=== PATIENT | male | born 1965 | race Caucasian/White ===

== ENCOUNTER → 2016-07-05 | Outpatient (CLI) | payer OTHER ==
[~2016-07-05] MED LIST: OXYC-106 PO
--- NOTE | 2016-07-05 16:31 | DIAGNOSTIC IMAGING REPORT ---
CHEST 2 VIEWS ROUTINE CLINICAL HISTORY: PNEUMONIA, UNSPECIFIED ORGANISM COMPARISON STUDY: 08/05/2014 FINDINGS: There is severe underlying emphysema. There is elevation of the left hemidiaphragmatic contour. There are left lingular and lower lobe airspace opacities, consistent with a pneumonia. Subpulmonic left pleural effusion fluid cannot be excluded. The heart is normal in size. There is no failure. There is fluid present within a right apical cavity best visualized on the lateral view.[ IMPRESSION: 1. Severe emphysema 2. Small air-fluid level within a right apical cavity 3. Elevation of the left hemidiaphragmatic contour 4. Left lingular and left lower lobe airspace opacities consistent with a pneumonia 5. Subpulmonic left pleural fluid cannot be excluded. CT scanning might be considered in follow-up for further evaluation. Electronically signed by: Ray Pittman M.D. 07/05/2016 4:29 PM Dictated Date/Time: 07/05/2016 4:26 PM
[2016-07-05 17:19] LABS: ALT/SGPT 15 U/L (12-78); BLOOD UREA NITROGEN 11 mg/dl (7-18); BUN/CREATININE RATIO 17.3 (10-20); CARBON DIOXIDE 28 mmol/L (21-32); CHLORIDE 96 mmol/L (98-107); CREATININE 0.64 mg/dl (0.60-1.40); GLUCOSE 120 mg/dl (70-99); POTASSIUM 3.8 mmol/L (3.5-5.1); SODIUM 134 mmol/L (136-145)
[2016-07-05 17:22] LABS: ALB/GLOB RATIO 0.4 (0.9-2); ALKALINE PHOSPHATASE 92 U/L (45-117); AST/SGOT 12 U/L (15-37)
[2016-07-05 17:30] LABS: CALCIUM 8.7 mg/dl (8.5-10.1)
== END | disposition home or self-care (01) ==
LOC: C.RAD 15:35
PROVIDERS: ATTEND Family Medicine
DX: D64.9 Anemia, unspecified (principal); J18.9 Pneumonia, unspecified organism; J43.9 Emphysema, unspecified

== ENCOUNTER → 2016-07-09 | Outpatient (CLI) | payer OTHER ==
[2016-07-18 16:20] LABS: QUANTIF TB AG-NIL <0.00 IU/ML; QUANTIFERON NIL 0.02 IU/ML
== END | disposition home or self-care (01) ==
LOC: C.LABSPEC 16:40
PROVIDERS: ATTEND Family Medicine
DX: J18.9 Pneumonia, unspecified organism (principal)

== ENCOUNTER → 2016-07-10 | Outpatient (CLI) | payer OTHER ==
[~2016-07-10] MED LIST changes: +OPTIRAY 320 IV PRN
--- NOTE | 2016-07-10 10:38 | DIAGNOSTIC IMAGING REPORT ---
CHEST CT WITH CONTRAST CT DOSE: 218.30 mGycm HISTORY: Abnormal chest x-ray. POSSIBLE LEFT PLEURAL FLUID TECHNIQUE: Multiaxial CT images of the chest were performed following the intravenous administration of contrast. COMPARISON: Chest 07/05/2016. FINDINGS: There is a large loculated left basilar pleural effusion. This demonstrates a thickened and irregular enhancing wall. Small amount additional left anterior pleural fluid/enhancement. A 5 mm hypodense lesion within the right hepatic lobe is too small to characterize. Small fluid surrounding the spleen. This is only partially visualized. Subcentimeter mediastinal lymph nodes do not meet CT criteria for pathologic involvement at this time. No significant hilar lymphadenopathy. The main pulmonary arteries are patent. Normal caliber thoracic aorta. Old, healed right lower posterior rib fractures. No acute fractures. Old left clavicle fracture. No pneumothorax. The central airways are patent. Severe apical predominant bullous emphysema. Small fluid levels located within pre-existing right upper lobe bullae. Focal patchy areas of consolidation seen within the right lung apex and left upper lobe anteriorly. Groundglass densities at the base of the left lower lobe this may be due to atelectasis from the large loculated pleural effusion. IMPRESSION: 1. There is a large loculated left basilar pleural effusion. This demonstrates a thickened and irregular enhancing wall. This favors an empyema. However, a malignant pleural effusion could also have a similar appearance. 2. Patchy areas of consolidation seen within the right upper lobe and left upper lobe. The right upper lobe consolidation demonstrates small fluid levels within pre-existing bulla. These are highly suspicious for a pneumonia. In addition, these findings could represent an atypical pneumonia such as tuberculosis in the appropriate clinical setting. 3. Follow-up chest CT is recommended to ensure resolution of these findings. 4. Severe bullous emphysema. Electronically signed by: Mukul Sanchez M.D. 07/10/2016 10:36 AM Dictated Date/Time: 07/10/2016 10:24 AM
== END | disposition home or self-care (01) ==
LOC: C.CTS 09:52
PROVIDERS: ATTEND Family Medicine
DX: Z09 Encounter for follow-up examination after completed treatment for conditions other than malignant neoplasm (principal); R91.8 Other nonspecific abnormal finding of lung field; J90 Pleural effusion, not elsewhere classified; J43.9 Emphysema, unspecified

== ENCOUNTER 2016-07-11 16:14 | Emergency (ER) | payer OTHER ==
[~2016-07-11] VITALS: Ht 182.9 cm; Wt 62.4 kg
[~2016-07-11 16:14] MED LIST changes: -OPTIRAY 320 IV PRN
[2016-07-11 16:20] VITALS: TEMP 37.5; Ht 182.9 cm; Wt 62.4 kg
[2016-07-11] MEDS ORDERED: SODIUM CHLORIDE 0.9% 1000ML 1,000 ML IV ONE (16:37)
[2016-07-11] MEDS ORDERED: PIPERACILLIN/TAZOBACTAM 4.5 GM/100ML D5W IV STA (16:37)
[2016-07-11] MEDS ORDERED: ALBUT/IPRATROP 3MG/0.5MG NEB 3 ML VIAL INH STA (16:37)
--- NOTE | 2016-07-11 16:43 | EMERGENCY ROOM VISIT NOTE ---
History Report prepared by Joseph: Tony Potter Under the Supervision of: Dr. Stevie Cody D.O. First contact with patient: 16:17 Chief Complaint: RESPIRATORY PROBLEMS Stated Complaint: FLUID IN LUNGS- PHYSICIAN REFERRED History of Present Illness The patient is a 51 year old male who presents to the Emergency Room with complaints of cough and difficulty breathing. The patient has had weight loss difficulty breathing and cough which is been ongoing for quite some time. The patient is lost 25 pounds recently without trying to lose weight. The patient had an abnormal chest x-ray which led to a pulmonary consultation. The patient was started on doxycycline initially and is currently taking Augmentin. He is on day 5 Augmentin. He still has significant shortness of breath and exertional dyspnea. He had a chest CT yesterday and had a follow-up appointment with pulmonology today. Results of the chest CT or worrisome for a pulmonary abscess. The patient doesn't a history of being incarcerated in the past. He has no history of tuberculosis. The patient was sent to the emergency department for transfer to a tertiary center for cardiothoracic surgery evaluation. The short piece handler presented to the emergency department with the patient to give me some of the history and to recommend transfer for CT surgery evaluation. The patient denies any recent fevers. He denies having any hemoptysis. He does complain of night sweats however. Source of History: patient Onset: For quite some time Position: other (global - cough/shortness of breath) Symptom Intensity: significant Associated Symptoms: No fevers Note: Associated symptoms: Denies any hemoptysis. Does complain of night sweats. Lost 25 pounds recently. Review of Systems See HPI for pertinent positives & negatives. A total of 10 systems reviewed and were otherwise negative. Past Medical & Surgical Medical Problems: (1) Cough (2) SOB (shortness of breath) Family History No pertinent family history Social History Marital Status: Housing Status: lives alone Occupation Status: unemployed Current/Historical Medications Unable to Obtain Active Prescriptions or Reported Meds Allergies Coded Allergies: No Known Allergies (Verified Allergy, Unknown, 11/09/04) Physical Exam Vital Signs Date Time Temp Pulse Resp B/P Pulse Ox O2 Delivery O2 Flow Rate FiO2 07/11/16 18:04 Nasal Cannula 2.0 07/11/16 17:42 99 19 110/67 97 Nasal Cannula 2.0 07/11/16 16:29 111 07/11/16 16:20 37.5 118 25 121/76 90 Room Air Physical Exam GENERAL: Patient is awake and alert. He is nonanxious appearing. He is somewhat frail and cachectic. EYES: The conjunctivae are clear. The pupils are round and reactive. EARS, NOSE, MOUTH AND THROAT: The nose is without any evidence of any deformity. Mucous membranes are moist tongue is midline NECK: The neck is nontender and supple. RESPIRATORY: Mild tachypnea was noted with mild conversational dyspnea. Dementia breath sounds are noted throughout. CARDIOVASCULAR: Tachycardic rate with regular rhythm was noted. No definite murmur was noted auscultation. GASTROINTESTINAL: The abdomen is soft. Bowel sounds are present in all quadrants. Abdomen is nontender MUSCULOSKELETAL/EXTREMITIES: There is no evidence of gross deformity full range of motion is noted in the hips and shoulders SKIN: There is no obvious evidence of any rash. There are no petechiae, pallor or cyanosis noted. NEUROLOGIC: Patient is awake alert and oriented x3. Medical Decision & Procedures Laboratory Results 07/11/16 17:25 Red Blood Count 3.43, Mean Corpuscular Volume 72.3, Mean Corpuscular Hemoglobin 21.3, Mean Corpuscular Hemoglobin Concent 29.4, Mean Platelet Volume 7.6, Neutrophils (%) (Auto) 88.5, Lymphocytes (%) (Auto) 5.3, Monocytes (%) (Auto) 5.6, Eosinophils (%) (Auto) 0.1, Basophils (%) (Auto) 0.1, Neutrophils # (Auto) 14.50, Lymphocytes # (Auto) 0.87, Monocytes # (Auto) 0.91, Eosinophils # (Auto) 0.02, Basophils # (Auto) 0.01 07/11/16 17:25 Test 07/11/16 17:25 07/11/16 17:29 07/11/16 18:00 White Blood Count 16.37 K/uL (4.8-10.8) Red Blood Count 3.43 M/uL (4.7-6.1) Hemoglobin 7.3 g/dL (14.0-18.0) Hematocrit 24.8 % (42-52) Mean Corpuscular Volume 72.3 fL (80-100) Mean Corpuscular Hemoglobin 21.3 pg (25-34) Mean Corpuscular Hemoglobin Concent 29.4 g/dl (32-36) Platelet Count 710 K/uL (130-400) Mean Platelet Volume 7.6 fL (7.4-10.4) Neutrophils (%) (Auto) 88.5 % Lymphocytes (%) (Auto) 5.3 % Monocytes (%) (Auto) 5.6 % Eosinophils (%) (Auto) 0.1 % Basophils (%) (Auto) 0.1 % Neutrophils # (Auto) 14.50 K/uL (1.4-6.5) Lymphocytes # (Auto) 0.87 K/uL (1.2-3.4) Monocytes # (Auto) 0.91 K/uL (0.11-0.59) Eosinophils # (Auto) 0.02 K/uL (0-0.5) Basophils # (Auto) 0.01 K/uL (0-0.2) RDW Standard Deviation 50.3 fL (36.4-46.3) RDW Coefficient of Variation 18.9 % (11.5-14.5) Immature Granulocyte % (Auto) 0.4 % Immature Granulocyte # (Auto) 0.06 K/uL (0.00-0.02) Polychromasia 1+ Rouleau 1+ Erythrocyte Sedimentation Rate > 90 mm/hr (0-14) Prothrombin Time 11.8 SECONDS (9.0-12.0) Prothromb Time International Ratio 1.1 (0.9-1.1) Activated Partial Thromboplast Time 40.6 SECONDS (21.0-31.0) Partial Thromboplastin Ratio 1.6 Anion Gap 8.0 mmol/L (3-11) Est Creatinine Clear Calc Drug Dose 129.3 ml/min Estimated GFR () 134.9 Estimated GFR (Non- 116.4 BUN/Creatinine Ratio 13.6 (10-20) Calcium Level 8.7 mg/dl (8.5-10.1) Phosphorus Level 3.3 mg/dl (2.5-4.9) Magnesium Level 1.8 mg/dl (1.8-2.4) Total Bilirubin 0.3 mg/dl (0.2-1) Aspartate Amino Transf (AST/SGOT) 12 U/L (15-37) Alanine Aminotransferase (ALT/SGPT) 17 U/L (12-78) Alkaline Phosphatase 71 U/L (45-117) Total Creatine Kinase 19 U/L (39-308) Creatine Kinase MB < 0.5 ng/ml (0.5-3.6) Creatine Kinase MB Ratio (0-3.0) Troponin I < 0.015 ng/ml (0-0.045) C-Reactive Protein 13.90 mg/dl (0-0.29) Total Protein 6.8 gm/dl (6.4-8.2) Albumin 2.1 gm/dl (3.4-5.0) Globulin 4.7 gm/dl (2.5-4.0) Albumin/Globulin Ratio 0.4 (0.9-2) Lipase 58 U/L (73-393) Bedside Lactic Acid Venous 0.77 mmol/L (0.90-1.70) Urine Color YELLOW Urine Appearance CLEAR (CLEAR) Urine pH 7.0 (4.5-7.5) Urine Specific [place] 1.016 (1.000-1.030) Urine Protein NEG (NEG) Urine Glucose (UA) NEG (NEG) Urine Ketones NEG (NEG) Urine Occult Blood NEG (NEG) Urine Nitrite NEG (NEG) Urine Bilirubin NEG (NEG) Urine Urobilinogen NEG (NEG) Urine Leukocyte Esterase NEG (NEG) Urine WBC (Auto) 1-5 /hpf (0-5) Urine RBC (Auto) 0-4 /hpf (0-4) Urine Hyaline Casts (Auto) 1-5 /lpf (0-5) Urine Epithelial Cells (Auto) 5-10 /lpf (0-5) Urine Bacteria (Auto) NEG (NEG) Laboratory results per my review. Medications Administered Medications (Trade) Dose Ordered Sig/Nikkie Route Start Time Stop Time Status Last Admin Dose Admin Sodium Chloride (Nss 1000ml) 1,000 ml @ 999 mls/hr Q1H1M ONCE IV 07/11/16 16:37 07/11/16 17:37 DC 07/11/16 17:39 999 MLS/HR Piperacillin Sod/ Tazobactam Sod (Zosyn Iv) 4.5 gm NOW STAT IV 07/11/16 16:37 07/11/16 16:40 DC 07/11/16 17:39 4.5 GM Albuterol/ Ipratropium (Duoneb) 3 ml NOW STAT INH 07/11/16 16:37 07/11/16 16:40 DC 07/11/16 17:39 3 ML ECG Indication: SOB/dyspnea Rate (beats per minute): 93 Rhythm: normal sinus Findings: no ectopy, other (no acute ST segment abnormalities) Change: no significant change (compared to october of 2004) ED Course 1633: The patient was evaluated in room A4B. A complete history and physical examination were performed. 163: Ordered Duoneb 3 ml INH, Zosyn IV 4.5 gm IV, NSS 1000 ml @ 999 mls/hr IV. 165: I discussed the patient with Dr. Phipps - hospitalist at [facility] - he wants me to talk to cardiothoracic surgery. 1740: I discussed the patient with Dr. Rdz - Cardiology - [facility] in [place] - he says that they would not be able to offer procedure there. 181: I discussed the patient with Dr. Kamaljit Naranjo cardiac surgery. 181: I discussed the patient with Dr. Jorge Naranjo chemical processing laborer. She will accept the patient in transfer and evaluate the patient for further treatment. 1820: I reevaluated the patient and he is resting comfortably. He verbally expressed understanding and agreement of the treatment plan. The patient will be transferred to [facility] for further treatment. Medical Decision Prior records/ancillary studies reviewed. Triage Nursing notes reviewed. The patient's history was concerning for respiratory difficulties. Differential diagnosis: Etiologies such as infections, reactive airway disease, pneumonia, pneumothorax , COPD, CHF, cardiac ischemia, pulmonary embolism, musculoskeletal, gastrointestinal, as well as others were entertained. The patient is a 51-year-old male who presented to the emergency department for an evaluation of abnormal CT the chest. The patient's been having trouble recently with weight loss and cough. He had an abnormal chest x-ray and was started on doxycycline followed by Augmentin. His symptoms have not improved. He was scheduled to see a short piece handler and had a CT the chest yesterday. The CT the chest was very concerning for pulmonary abscess and the possibility of tuberculosis was raised. We were trying to schedule the patient an evaluation by cardiothoracic surgery for possible identification of the abnormality noted on CAT scan but at this time we are unable to have CT surgery see the patient at our facility. The patient was brought to the emergency department with the short piece handler recommends transfer at this time to a tertiary center. Initially I discussed his case with [facility]. They were unable to accept the patient because the CT surgeon was unable to consult on this patient. I then discussed his case with [facility]. I discussed the case with the on-call cardiothoracic surgeon as well as the hospitalist group. They were able to accept the patient transfer. He was treated with DuoNeb therapy as well as IV fluids. He was also treated with Zosyn after I discussed his case with the short piece handler at our facility. The patient was reevaluated multiple times. I discussed the patient's laboratory radiographic studies with him. He is where the severity diagnosis at this time. Consults Time Called: 1640 Consulting Physician: Dr. Moise duval at [facility] Returned Call: 1652 I discussed the patient with Dr. Moise duval at [facility] - he wants me to talk to cardiothoracic surgery. Additional Consults: Time Called: 1730 Consulted Physician: Dr. Kajal Catalan in [place] Returned Call: 1740 Additional Comments: I discussed the patient with Dr. Kajal Catalan in [place] - he says they would not be able to offer procedure there. Time Called: 1800 Consulted Physician: Dr. Kamaljit Naranjo cardiac surgery Returned Call: 1812 Additional Comments: I discussed the patient with Dr. Kamaljit Naranjo cardiac surgery. Impression Primary Impression: Pulmonary abscess Additional Impressions: Anemia PNA (pneumonia) COPD (chronic obstructive pulmonary disease) Scribe Attestation The scribe's documentation has been prepared under my direction and personally reviewed by me in its entirety. I confirm that the note above accurately reflects all work, treatment, procedures, and medical decision making performed by me. Departure Information Dispostion Transfer Acute Care Facility (to [facility]) Prescriptions Unable to Obtain Active Prescriptions or Reported Meds Referrals Esther Bustamante M.D. (PCP) Patient Instructions My [facility] Problem Qualifiers Primary Impression: Pulmonary abscess Pulmonary abscess pneumonia presence: with pneumonia Laterality: unspecified laterality Qualified Codes: J85.1 - Abscess of lung with pneumonia Additional Impressions: Anemia Anemia type: unspecified type Qualified Codes: D64.9 - Anemia, unspecified PNA (pneumonia) Pneumonia type: due to unspecified organism Laterality: bilateral Lung location: unspecified part of lung Qualified Codes: J18.9 - Pneumonia, unspecified organism COPD (chronic obstructive pulmonary disease) COPD type: unspecified COPD Qualified Codes: J44.9 - Chronic obstructive pulmonary disease, unspecified
[2016-07-11 17:44] LABS: HEMATOCRIT 24.8 % (42-52); MEAN CELL VOLUME 72.3 fL (80-100); MEAN CORPUSCULAR HEMOGLOBIN 21.3 pg (25-34); MEAN CORPUSCULAR HGB CONC 29.4 g/dl (32-36); MEAN PLATELET VOLUME 7.6 fL (7.4-10.4); PLATELET COUNT 710 K/uL (130-400); RED BLOOD COUNT 3.43 M/uL (4.7-6.1); WHITE BLOOD COUNT 16.37 K/uL (4.8-10.8)
[2016-07-11 17:52] LABS: INR 1.1 (0.9-1.1); PARTIAL THROMBOPLASTIN RATIO 1.6; PROTHROMBIN TIME (PATIENT) 11.8 SECONDS (9.0-12.0)
[2016-07-11 18:03] LABS: BASO % 0.1 %; BASO ABS # 0.01 K/uL (0-0.2); COMPLETE YES; EOS % 0.1 %; IG% 0.4 %; LYMPH % 5.3 %; LYMPH ABS # 0.87 K/uL (1.2-3.4); MONO % 5.6 %; NEUT % 88.5 %; POLYCHROMASIA 1+; ROULEAUX 1+
[2016-07-11 18:13] LABS: ALB/GLOB RATIO 0.4 (0.9-2); ALT/SGPT 17 U/L (12-78); AST/SGOT 12 U/L (15-37); BLOOD UREA NITROGEN 8 mg/dl (7-18); BUN/CREATININE RATIO 13.6 (10-20); CALCIUM 8.7 mg/dl (8.5-10.1); CARBON DIOXIDE 28 mmol/L (21-32); CHLORIDE 97 mmol/L (98-107); CREATININE 0.59 mg/dl (0.60-1.40); GLUCOSE 100 mg/dl (70-99); MAGNESIUM 1.8 mg/dl (1.8-2.4); PHOSPHORUS 3.3 mg/dl (2.5-4.9); POTASSIUM 3.8 mmol/L (3.5-5.1); SODIUM 133 mmol/L (136-145)
[2016-07-11 18:14] LABS: ALKALINE PHOSPHATASE 71 U/L (45-117)
[2016-07-11 18:25] LABS: URINE APPEARANCE CLEAR (CLEAR); URINE BILIRUBIN NEG (NEG); URINE COLOR YELLOW; URINE NITRITE NEG (NEG); URINE SPECIFIC GRAVITY 1.016 (1.000-1.030); UROBILINOGEN NEG (NEG); ZZUR CULT IF INDIC CLEAN CATCH NO
[2016-07-11 18:30] LABS: MANUAL MICROSCOPIC REQUIRED? NO; REVIEW REQ? NO
[2016-07-11 19:57] VITALS: BP 117/56; PULSE 91; O2SAT 97
== END 2016-07-11 19:35 | disposition short-term general hospital (02) ==
LOC: C.EDB 16:15 → C.EDA 19:35
DX: J85.1 Abscess of lung with pneumonia (principal); D64.9 Anemia, unspecified; J44.9 Chronic obstructive pulmonary disease, unspecified

== ENCOUNTER → 2016-08-09 | Outpatient (CLI) | payer OTHER ==
[2016-08-09 15:15] LABS: HEMATOCRIT 36.1 % (42-52); MEAN CORPUSCULAR HEMOGLOBIN 21.3 pg (25-34); MEAN CORPUSCULAR HGB CONC 28.8 g/dl (32-36); MEAN PLATELET VOLUME 8.3 fL (7.4-10.4); PLATELET COUNT 492 K/uL (130-400); RED BLOOD COUNT 4.88 M/uL (4.7-6.1); WHITE BLOOD COUNT 7.25 K/uL (4.8-10.8)
[2016-08-09 15:17] LABS: BASO ABS # 0.14 K/uL (0-0.2); BASOPHIL % 1.9 % (0-2); COMPLETE YES; EOSINOPHIL % 2.8 %; HYPOCHROMIA PRESENT; LYMPH ABS # 1.41 K/uL (1.2-3.4); LYMPHOCYTE % 19.4 %; POIKILOCYTOSIS PRESENT; SCHISTOCYTES OCCASIONAL
[2016-08-09 15:20] LABS: BLOOD UREA NITROGEN 11 mg/dl (7-18); BUN/CREATININE RATIO 17.3 (10-20); CALCIUM 8.9 mg/dl (8.5-10.1); CARBON DIOXIDE 29 mmol/L (21-32); CHLORIDE 105 mmol/L (98-107); CREATININE 0.66 mg/dl (0.60-1.40); GLUCOSE 100 mg/dl (70-99); POTASSIUM 4.6 mmol/L (3.5-5.1); SODIUM 139 mmol/L (136-145)
--- NOTE | 2016-08-15 13:13 | CODING QUERY NO DIAGNOSIS ---
TREATMENT RENDERED WITHOUT A DIAGNOSIS To promote full compliance with coding requirements relating to patient care, physician participation is requested in all cases of medical records coder uncertainty. Please assist us with providing a diagnosis/symptom for the test(s) below: A diagnosis/symptom was not documented on your Order. A valid diagnosis/symptom is required to bill all insurances. Please remember that we are unable to code a diagnosis of rule out, probable, possible, questionable, or suspected. Tests that require a diagnosis: DOS 08/09 * CBC, PRP DIAGNOSIS: Provider Signature: Date: Thank you Nica [facility] Information Management Once completed, please kindly fax back to [phone] For questions please call [phone]
== END ==
LOC: C.LABSPEC 13:54
PROVIDERS: ATTEND Internal Medicine Infectious Disease
DX: Z01.89 Encounter for other specified special examinations (principal)

== ENCOUNTER 2022-09-18 21:25 | Inpatient (IN) ==
[2022-09-18] MEDS ORDERED: ALBUT/IPRATROP 3MG/0.5MG NEB 3 ML VIAL INH STA (21:43)
[2022-09-18] MEDS ORDERED: methylPREDNISolone 125 MG/2 ML VIAL IV STA (21:47)
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
[2022-09-18 22:12] LABS: Base Excess VBG 4.2 mEq/L; HCO3 VBG 30 mmol/L; Oxygen Saturation VBG 88.7 %; PCO2 VBG 50 mmHg (38-50); PO2 VBG 59 mmHg; pH VBG 7.39 (7.36-7.41)
[2022-09-18 22:24] LABS: Basophils # (auto) 0.03 K/uL (0-0.2); Basophils % (auto) 0.4 %; Eosinophils # (auto) 0.76 K/uL (0-0.50); Eosinophils % (auto) 10.6 %; Hematocrit (blood only) 38.5 % (42.0-52.0); Immature Granulocytes # (auto) 0.02 K/uL (0.01-0.20); Immature Granulocytes % (auto) 0.3 %; Lymphocytes # (auto) 1.01 K/uL (1.2-3.4); Lymphocytes % (auto) 14.1 %; Mean Corpuscular Hemoglobin 29.4 pg (25.0-34.0); Mean Corpuscular Hgb Conc 33.8 g/dL (32.0-36.0); Mean Corpuscular Volume 87.1 fL (80.0-100.0); Mean Platelet Volume 9.4 fL (9.4-12.4); Monocytes # (auto) 0.59 K/uL (0.11-0.59); Monocytes % (auto) 8.2 %; Neutrophils # (auto) 4.75 K/uL (1.40-6.50); Neutrophils % (auto) 66.4 %; Platelet Count 248 K/uL (130-400); RDW Coefficient of Variation 12.9 % (11.5-14.5); RDW Standard Deviation 40.8 fL (36.4-46.3); Red Blood Count 4.42 M/uL (4.70-6.10); White Blood Count 7.16 K/ul (4.8-10.8)
[2022-09-18 22:43] LABS: Albumin Globulin Ratio 1.7 (0.9-2); Albumin Level 4.1 gm/dl (3.4-5.0); BUN Creatinine Ratio 21.2 (10-20); Bilirubin,Total 0.3 mg/dl (0.2-1.0); Creatinine Clr Calc Pharmacy 70.7 ml/min; Est GFR (African American) 96.9 ml/min; Est GFR (Non-African American) 83.6 ml/min; Globulin 2.4 gm/dl (2.5-4.0); Magnesium 1.8 mg/dl (1.7-2.4); Potassium 3.8 mmol/L (3.5-5.1); Total Protein 6.5 gm/dl (6.0-8.3)
[2022-09-18 22:49] LABS: Troponin I High Sensitivity 6.3 pg/ml (0-20)
[2022-09-18 22:53] LABS: D Dimer 200 ug/L FEU (0-500); Partial Thromboplastin Ratio 1.1; Partial Thromboplastin Time 29.9 Seconds (21.0-31.0); Prothrombin Time 10.9 Seconds (9.0-12.0)
[2022-09-18 23:08] LABS: Adenovirus PCR Not Detected (NotDetected); Bordetella parapertussis PCR Not Detected (NotDetected); Bordetella pertussis PCR Not Detected (NotDetected); Chlamydia pneumoniae PCR Not Detected (NotDetected); Coronavirus 229E PCR Not Detected (NotDetected); Coronavirus CoV-2 (COVID19)PCR Not Detected (NotDetected); Coronavirus HKU1 PCR Not Detected (NotDetected); Coronavirus NL63 PCR Not Detected (NotDetected); Coronavirus OC43PCR Not Detected (NotDetected); Human Metapneumovirus PCR Not Detected (NotDetected); Influenza A PCR Not Detected (NotDetected); Influenza B PCR Not Detected (NotDetected); Mycoplasma pneumoniae PCR Not Detected (NotDetected); Parainfluenza Virus 1 PCR Not Detected (NotDetected); Parainfluenza Virus 2 PCR Not Detected (NotDetected); Parainfluenza Virus 3 PCR Not Detected (NotDetected); Parainfluenza Virus 4 PCR Not Detected (NotDetected); Respiratory Syncytial VirusPCR Not Detected (NotDetected); Rhinovirus/Enterovirus PCR Not Detected (NotDetected)
[2022-09-18] MEDS ORDERED: OPTIRAY 320 125ml IV ONE (23:27)
--- NOTE | 2022-09-18 23:46 | CT Scan Report ---
Exam(s): CTA CHEST IV Amt: 119 ML OPTIRAY 320 EXAM: CT Angiography Chest With Intravenous Contrast CLINICAL HISTORY: Reason for exam: sob, tachycardia, hypoxia. TECHNIQUE: Axial computed tomographic angiography images of the chest with intravenous contrast. CTDI is 12.91 mGy and DLP is 484.81 mGy-cm. Automated exposure control was utilized for the study. A dose lowering technique was utilized adhering to the principles of ALARA. MIP reconstructed images were created and reviewed. COMPARISON: No relevant prior studies available. FINDINGS: Pulmonary arteries: Adequate pulmonary artery opacification. Normal caliber main pulmonary artery. No pulmonary embolism. Aorta: No acute findings. No thoracic aortic aneurysm or dissection. Lungs: Severe paraseptal and centrilobular emphysema with bullous changes. Right apical bulla measures up to 9.6 cm. Biapical pleural- parenchymal scarring. No consolidation or mass. Pleural space: Unremarkable. No pleural effusion or pneumothorax. Heart: Unremarkable. Normal heart size. No pericardial effusion. No RV strain. No significant coronary artery atherosclerosis. Bones/joints: No acute fracture or dislocation. Soft tissues: Unremarkable. Lymph nodes: Unremarkable. No adenopathy. IMPRESSION: 1. No evidence of acute pulmonary embolism. 2. Severe emphysema with bullous changes. Electronically signed by: Tata Amaya M.D. 09/18/22 23:45 PM
[2022-09-19] MEDS ORDERED: MAGNESIUM SULFATE / D5W 1 GM/100 ML BAG IV ONE (01:35)
[2022-09-19] MEDS ORDERED: ONDANSETRON INJ 2 MG/ML 2 ML VIAL IV PRN (02:24)
[2022-09-19] MEDS ORDERED: GLUCOSE 10 TAB/TUBE PO PRN (02:24)
[2022-09-19] MEDS ORDERED: ACETAMINOPHEN 325 MG TAB PO PRN (02:24)
[2022-09-19] MEDS ORDERED: GLUCAGON FOR INJ 1 MG VIAL SQ PRN (02:24)
[2022-09-19] MEDS ORDERED: GLUCOSE 40% GEL 15 GM TUBE PO PRN (02:24)
[2022-09-19] MEDS ORDERED: DEXTROSE 50% 50 ML SYRINGE IV PRN (02:24)
[2022-09-19] MEDS ORDERED: CARBOHYDRATES FOR HYPOGLYCEMIA PO PRN (02:24)
[2022-09-19 03:46] LABS: Appearance Urine Clear (Clear); Bacteria Urine Automated Negative (Negative); Bilirubin Urine Negative (Negative); Blood Urine 1+ (Negative); Cast Urine Automated 0 /lpf (0-5); Color Urine Yellow; Epithelial Cell Urine Auto 0-5 /lpf (0-5); Glucose Urine UA 2+ (Negative); Ketones Urine Negative (Negative); Leukocyte Esterase Urine Negative (Negative); Nitrite Urine Negative (Negative); Protein Urine Negative (Negative); Specific Gravity Urine > 1.045 (1.000-1.030); Urobilinogen Urine Negative (Negative); WBC Urine Automated 0 /hpf (0-5)
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
[2022-09-19] MEDS: methylPREDNISolone 40 MG in SYRINGE 0 ML IV SCH ×3 (05:58→21:41)
--- NOTE | 2022-09-19 07:11 | XRay Report ---
XR chest 1V portable HISTORY: Dyspnea COMPARISON: Chest CT 07/10/2016. FINDINGS: Biapical scarlike densities and severe bullous emphysema again noted. No pneumothorax. No f ocal effusions. No new focal lung consolidations to suggest a pneumonia. No evidence for pulmonary ed kala. The heart is normal in size. Old, healed left clavicle fracture. IMPRESSION: Emphysema again noted. Otherwise, no acute process within the chest. ACT 112: Negative or not required by law. Electronically signed by: Mukul Sanchez M.D. 09/19/2022 7:09 AM
[2022-09-19] MEDS: ALBUT/IPRATROP 3MG/0.5MG NEB 3 ML VIAL NEB SCH ×4 (07:33→19:18)
[2022-09-19 08:04] LABS: Hematocrit (blood only) 37.7 % (42.0-52.0); Hemoglobin 12.4 g/dl (14.0-18.0); Mean Corpuscular Hemoglobin 28.8 pg (25.0-34.0); Mean Corpuscular Hgb Conc 32.9 g/dL (32.0-36.0); Mean Corpuscular Volume 87.7 fL (80.0-100.0); Mean Platelet Volume 9.8 fL (9.4-12.4); Platelet Count 224 K/uL (130-400); RDW Coefficient of Variation 12.8 % (11.5-14.5); RDW Standard Deviation 40.7 fL (36.4-46.3)
[2022-09-19] MEDS: INSULIN ASPART PER UNIT CHARGE SC SCH ×4 (08:11→20:08)
[2022-09-19 08:21] LABS: Albumin Level 3.8 gm/dl (3.4-5.0); BUN Creatinine Ratio 19.7 (10-20); Calcium 8.7 mg/dl (8.6-10.3); Creatinine Clr Calc Pharmacy 97.2 ml/min; Est GFR (African American) 116.6 ml/min; Est GFR (Non-African American) 100.6 ml/min; Phosphorus 2.2 mg/dl (2.5-4.9); Potassium 4.5 mmol/L (3.5-5.1)
[2022-09-19 08:34] LABS: Immature Granulocytes # (auto) 0.01 K/uL (0.01-0.20); Immature Granulocytes % (auto) 0.3 %; Lymphocytes # (auto) 0.27 K/uL (1.2-3.4); Lymphocytes % (auto) 7.7 %; Monocytes # (auto) 0.05 K/uL (0.11-0.59); Monocytes % (auto) 1.4 %; Neutrophils # (auto) 3.17 K/uL (1.40-6.50); Neutrophils % (auto) 90.6 %; RBC Morphology Unremarkable
[2022-09-19] MEDS: AZITHROMYCIN 500 MG in DEXTROSE 5% 250 ML IV SCH (08:44)
[2022-09-19] MEDS: guaiFENesin 600 MG TABCR PO SCH ×2 (08:44→19:58)
[2022-09-19] MEDS: FLUTICASONE/VILANTEROL 100/25MCG 14 PUFFS/INHALER INH SCH (08:46)
[2022-09-19] MEDS: BUPRENORPHINE/NALOXONE 8/2 MG TAB SL SCH ×2 (08:59→19:58)
[2022-09-19 09:20] LABS: Estimated Average Glucose 131 mg/dl; Hemoglobin A1C 6.2 % (4.5-5.6)
[2022-09-19] MEDS ORDERED: LANTUS PER UNIT CHARGE SQ SCH (11:15)
[2022-09-19] MEDS: LANTUS PER UNIT CHARGE SQ SCH (12:20)
--- NOTE | 2022-09-19 21:25 | Communication Note ---
Date of Service: September 19, 2022 Saw patient on rounds in the afternoon. Patient reports cough/dyspnea x 3 weeks. He does feel better s/p steroids & neb treatments since admission. BSGs have been high since admission. A1c noted (6.2%). Lantus added to novolog. Exam - gen - coughing but resting comfortably, no distress heart - RRR, s1 s2, no murmur lungs - fair airation, wheezes b/l, no rales, no distress A/P: 1. Severe baseline COPD 2. COPD exacerbation - 2nd to environmental exposure (outdoor smoke, etc)? 3. pre-DM add spiriva to his ICS/LABA cont steroids cont scheduled nebs flutter valve/IS Luis Isaac MD
[2022-09-20] MEDS: methylPREDNISolone 40 MG in SYRINGE 0 ML IV SCH ×3 (06:07→20:18)
[2022-09-20 06:22] LABS: Hematocrit (blood only) 39.9 % (42.0-52.0); Hemoglobin 13.2 g/dl (14.0-18.0); Immature Granulocytes # (auto) 0.04 K/uL (0.01-0.20); Immature Granulocytes % (auto) 0.5 %; Lymphocytes # (auto) 0.55 K/uL (1.2-3.4); Lymphocytes % (auto) 6.7 %; Mean Corpuscular Hemoglobin 29.1 pg (25.0-34.0); Mean Corpuscular Hgb Conc 33.1 g/dL (32.0-36.0); Mean Corpuscular Volume 87.9 fL (80.0-100.0); Mean Platelet Volume 9.3 fL (9.4-12.4); Monocytes # (auto) 0.46 K/uL (0.11-0.59); Monocytes % (auto) 5.6 %; Neutrophils # (auto) 7.15 K/uL (1.40-6.50); Neutrophils % (auto) 87.2 %; Platelet Count 226 K/uL (130-400); RDW Coefficient of Variation 12.8 % (11.5-14.5); RDW Standard Deviation 41.1 fL (36.4-46.3); Red Blood Count 4.54 M/uL (4.70-6.10)
[2022-09-20 06:54] LABS: Albumin Level 3.7 gm/dl (3.4-5.0); Calcium 8.9 mg/dl (8.6-10.3); Creatinine Clr Calc Pharmacy 102.5 ml/min; Est GFR (African American) 117.8 ml/min; Est GFR (Non-African American) 101.7 ml/min; Phosphorus 4.1 mg/dl (2.5-4.9); Potassium 4.8 mmol/L (3.5-5.1)
[2022-09-20] MEDS: ALBUT/IPRATROP 3MG/0.5MG NEB 3 ML VIAL NEB SCH ×4 (07:21→19:51)
[2022-09-20] MEDS: AZITHROMYCIN 500 MG in DEXTROSE 5% 250 ML IV SCH (09:53)
[2022-09-20] MEDS: guaiFENesin 600 MG TABCR PO SCH ×2 (09:53→20:15)
[2022-09-20] MEDS: FLUTICASONE/VILANTEROL 100/25MCG 14 PUFFS/INHALER INH SCH (09:53)
[2022-09-20] MEDS: INSULIN ASPART PER UNIT CHARGE SC SCH ×4 (09:54→22:33)
[2022-09-20] MEDS: UMECLIDINIUM BROMIDE 62.5MCG/BLISTER 7 PUFFS/INHALER INH SCH (09:55)
[2022-09-20] MEDS: LANTUS PER UNIT CHARGE SQ SCH (10:04)
[2022-09-20] MEDS: BUPRENORPHINE/NALOXONE 8/2 MG TAB SL SCH ×2 (10:04→20:15)
--- NOTE | 2022-09-20 16:38 | Hospitalist Progress Note ---
Date of Service September 20, 2022 Assessment & Plan (1) Acute respiratory failure with hypoxia: Plan: 2nd to #2 weaning O2 slowly improving pulm toilet (2) COPD exacerbation: Plan: slow improvement but is improved from admission wean steroids to 40mg BID today cont zithromax 5 days in total pulm toilet - flutter, IS, mucinex, etc wean o2 as tolerated added spiriva to his ICS/LABA needs pfts and pulm f/u post-d/c --> will arrange (3) Opioid dependence in remission: Plan: cont buprenorphine/naloxine 1 tab BID no issues (4) Prediabetes: Plan: a1c 6.2% will addiction counselor steroids making worse - now on lantus/novolog with good control shouldn't need any Rx at d/c other than diet control (5) DVT prophylaxis: Plan: add heparin 5000 BID Plan tele stable x 36 hours move to med/surg Admission and Anticipated Discharge Date Admission Date: September 19, 2022 Subjective still with cough/wheezing chest a little better from tightness perspective still with NATARAJAN tele overnight wnl feels good otherwise good appetite no new complaints of note - cough is dry; no mucous Review of Systems Review of Systems: gen - no fever cv - no cp pulm - see HPI GI - no pain or nausea Physical Exam Physical Exam: gen - NAD, coughing, pleasant mouth - MMM heart - RRR, s1 s2, no obvious murmur lungs - airation fair at best, extensive wheezing all lung segments, no rales; decreased BS bases abd - soft NT ND BS+ ext - no edema, pulses 2+ b/l psych - a/o x 3 Results & Data Results & Data Vital Signs (Past 12 Hours) Vital Signs Temp Pulse Pulse Resp BP Pulse Ox O2 Del Method 09/20/22 16:00 36.5 C 75 16 113/64 98 Room Air 09/20/22 14:28 68 20 91 Nasal Cannula 09/20/22 11:19 108 H 18 94 Nasal Cannula 09/20/22 11:02 36.8 C 97 H 18 122/66 92 Nasal Cannula 09/20/22 09:00 57 L 09/20/22 09:00 Nasal Cannula 09/20/22 08:00 37.0 C 84 16 115/60 98 Nasal Cannula 09/20/22 07:21 71 16 91 Nasal Cannula O2 Flow Rate 09/20/22 16:00 09/20/22 14:28 2 09/20/22 11:19 1 09/20/22 11:02 2 09/20/22 09:00 09/20/22 09:00 1 09/20/22 08:00 2 09/20/22 07:21 1 Laboratory Results Laboratory Results - last 48 hr 09/19/22 09/19/22 09/19/22 11:13 16:41 20:07 WBC RBC Hgb Hct MCV MCH MCHC RDW Std Deviation RDW Coeff of [place]coe Plt Count MPV Immature Gran % (Auto) Neut % (Auto) Lymph % (Auto) [place] % (Auto) Eos % (Auto) Baso % (Auto) Neut # (Auto) Lymph # (Auto) [place] # (Auto) Eos # (Auto) Baso # (Auto) Immature Gran # (Auto) Sodium Potassium Chloride Carbon Dioxide Anion Gap BUN Creatinine Est Cr Clr Drug Dosing Est GFR ( Amer) Est GFR (Non-Af Amer) BUN/Creatinine Ratio Glucose POC Glucose 117 H 124 H 105 H Calcium Phosphorus Albumin 09/20/22 09/20/22 09/20/22 06:02 06:02 07:25 WBC 8.20 RBC 4.54 L Hgb 13.2 L Hct 39.9 L MCV 87.9 MCH 29.1 MCHC 33.1 RDW Std Deviation 41.1 RDW Coeff of [place] 12.8 Plt Count 226 MPV 9.3 L Immature Gran % (Auto) 0.5 Neut % (Auto) 87.2 Lymph % (Auto) 6.7 [place] % (Auto) 5.6 Eos % (Auto) 0.0 Baso % (Auto) 0.0 Neut # (Auto) 7.15 H Lymph # (Auto) 0.55 L [place] # (Auto) 0.46 Eos # (Auto) 0.00 Baso # (Auto) 0.00 Immature Gran # (Auto) 0.04 Sodium 137 Potassium 4.8 Chloride 101 Carbon Dioxide 31 Anion Gap 5 BUN 20 Creatinine 0.74 Est Cr Clr Drug Dosing 102.5 Est GFR ( Amer) 117.8 Est GFR (Non-Af Amer) 101.7 BUN/Creatinine Ratio 27.0 H Glucose 117 H POC Glucose 121 H Calcium 8.9 Phosphorus 4.1 D Albumin 3.7 09/20/22 11:20 WBC RBC Hgb Hct MCV MCH MCHC RDW Std Deviation RDW Coeff of [place] Plt Count MPV Immature Gran % (Auto) Neut % (Auto) Lymph % (Auto) [place] % (Auto) Eos % (Auto) Baso % (Auto) Neut # (Auto) Lymph # (Auto) [place] # (Auto) Eos # (Auto) Baso # (Auto) Immature Gran # (Auto) Sodium Potassium Chloride Carbon Dioxide Anion Gap BUN Creatinine Est Cr Clr Drug Dosing Est GFR ( Amer) Est GFR (Non-Af Amer) BUN/Creatinine Ratio Glucose POC Glucose 144 H Calcium Phosphorus Albumin PG Care Time/CCT Total # of Minutes Spent Total Time Spent with Patient: Total time spent is greater than 50% in coordination of care (as documented) at patient's floor/unit and/or counseling patient: Coding Level of Care Code 07858 SUB INP/OBS CARE 2/35MIN Diagnoses Acute respiratory failure with hypoxia J96.01 COPD exacerbation J44.1 Opioid dependence in remission F11.21 Prediabetes R73.03 DVT prophylaxis Z29.9
--- NOTE | 2022-09-21 05:45 | Electrocardiogram Report ---
Test Reason : Blood Pressure : / mmHG Vent. Rate : 098 BPM Atrial Rate : 098 BPM P-R Int : 152 ms QRS Dur : 088 ms QT Int : 334 ms P-R-T Axes : -27 008 001 degrees QTc Int : 426 ms Normal sinus rhythm Normal ECG When compared with ECG of 12-FEB-2019 10:27, T wave inversion now evident in Inferior leads Confirmed by Alvin Mullins ([id number]) on 09/21/2022 5:44:56 AM Referred By: REFERRED SELF Confirmed By:Alvin Mullins
[2022-09-21] MEDS: ALBUT/IPRATROP 3MG/0.5MG NEB 3 ML VIAL NEB SCH ×4 (07:16→19:39)
[2022-09-21] MEDS: INSULIN ASPART PER UNIT CHARGE SC SCH ×4 (09:52→20:25)
[2022-09-21] MEDS: BUPRENORPHINE/NALOXONE 8/2 MG TAB SL SCH ×2 (09:52→20:19)
[2022-09-21] MEDS: LANTUS PER UNIT CHARGE SQ SCH (09:52)
[2022-09-21] MEDS: UMECLIDINIUM BROMIDE 62.5MCG/BLISTER 7 PUFFS/INHALER INH SCH (09:53)
[2022-09-21] MEDS: guaiFENesin 600 MG TABCR PO SCH ×2 (09:53→20:18)
[2022-09-21] MEDS: methylPREDNISolone 40 MG in SYRINGE 0 ML IV SCH ×2 (09:53→20:19)
[2022-09-21] MEDS: FLUTICASONE/VILANTEROL 100/25MCG 14 PUFFS/INHALER INH SCH (09:54)
[2022-09-21] MEDS: AZITHROMYCIN 250 MG TAB PO SCH (09:55)
[2022-09-21] MEDS: HEPARIN SOD 5,000 UNIT/0.5 ML VIAL SQ SCH ×2 (12:33→20:20)
--- NOTE | 2022-09-21 21:06 | Hospitalist Progress Note ---
Date of Service September 21, 2022 Assessment & Plan (1) Acute respiratory failure with hypoxia: Plan: 2nd to #2 resolved he is off [place] O2 at rest (2) COPD exacerbation: Plan: improving very nicely he is off O2 at rest but may need ambulatory O2 at home stop IV solumedrol after tonight's dose switch to po prednisone 40mg daily starting in am send home with prednisone taper cont zithromax 5 days in total - day #3 today pulm toilet - flutter, IS, mucinex, etc at discharge --> 1. INCREASE advair to 250/50 concentration, 1 puff BID (Currently on 100/50 formulation) 2. SPIRIVA 1 puff daily 3. prednisone taper 4. albuterol 5. needs pulmonary referral for PFTs, etc; he is interested in pulmonary rehab 6. 1 more dose of zithromax for 09/23/22 2-step o2 test ordered for tomorrow AM (3) Opioid dependence in remission: Plan: cont buprenorphine/naloxine 1 tab BID no issues (4) Prediabetes: Plan: a1c 6.2% discussed in detail today since we are weaning steroids stop the lantus at discharge -- diet control only handouts added to d/c instructions (5) DVT prophylaxis: Plan: heparin 5000 BID (6) Anemia: Plan: Hb 13 at presentation check Fe studies, b12, folate AM Plan plan for d/c home tomorrow 2-step ordered for tomorrow AM on-coming attending - send home with prednisone taper, spiriva daily, 1 more dose zithromax, and INCREASED dose of advair to 250/50 concentration 1 puff BID will need scripts for above Admission and Anticipated Discharge Date Admission Date: September 19, 2022 Subjective "I feel great" "So much better" breathing more easily today cough improved can take bigger breaths walked with respiratory in the hallway today and also on his own sats dropped to <88% both times however, at rest, sats >90% all day off of O2 anxious to return home Review of Systems Review of Systems: gen - feels good, eating well cv - no cp or tightness pulm - cough/wheezing/dyspnea improved GI - no pain Physical Exam Physical Exam: gen - NAD, thin, looks good today mouth - MMM heart - RRR, s1 s2, no obvious murmur lungs - airation improved today; wheezing all lung segments also improved today, no rales; decreased BS bases abd - soft NT ND BS+ ext - no edema, pulses 2+ b/l psych - a/o x 3 Results & Data Results & Data Vital Signs (Past 12 Hours) Vital Signs Temp Pulse Resp BP Pulse Ox O2 Del Method O2 Flow Rate 09/21/22 20:47 36.8 C 93 H 18 110/80 94 Room Air 09/21/22 19:52 Room Air 09/21/22 19:41 110 H 20 91 Room Air 09/21/22 15:26 92 H 18 92 Nasal Cannula 2 09/21/22 15:08 36.9 C 96 H 18 129/86 93 Nasal Cannula 2 09/21/22 11:05 98 H 18 92 Room Air Laboratory Results Laboratory Results - last 24 hr 09/20/22 09/21/22 09/21/22 22:23 08:08 12:04 POC Glucose 162 H 115 H 108 H 09/21/22 09/21/22 17:12 20:16 POC Glucose 110 H 115 H PG Care Time/CCT Total # of Minutes Spent Total Time Spent with Patient: Total time spent is greater than 50% in coordination of care (as documented) at patient's floor/unit and/or counseling patient: Coding Level of Care Code 07455 SUB INP/OBS CARE 2/35MIN Diagnoses Acute respiratory failure with hypoxia J96.01 COPD exacerbation J44.1 Opioid dependence in remission F11.21 Prediabetes R73.03 DVT prophylaxis Z29.9 Anemia D64.9
[2022-09-22] MEDS: ALBUT/IPRATROP 3MG/0.5MG NEB 3 ML VIAL NEB SCH ×3 (07:09→14:11)
[2022-09-22 07:36] LABS: BUN Creatinine Ratio 25.3 (10-20); Calcium 8.9 mg/dl (8.6-10.3); Est GFR (African American) 114.7 ml/min; Potassium 4.4 mmol/L (3.5-5.1)
[2022-09-22 07:56] LABS: Ferritin 11.4 ng/ml (8-388)
[2022-09-22] MEDS ORDERED: predniSONE 20 MG TAB PO SCH (09:00)
[2022-09-22] MEDS: guaiFENesin 600 MG TABCR PO SCH (09:31)
[2022-09-22] MEDS: AZITHROMYCIN 250 MG TAB PO SCH (09:32)
[2022-09-22] MEDS: UMECLIDINIUM BROMIDE 62.5MCG/BLISTER 7 PUFFS/INHALER INH SCH (09:32)
[2022-09-22] MEDS: FLUTICASONE/VILANTEROL 100/25MCG 14 PUFFS/INHALER INH SCH (09:33)
[2022-09-22] MEDS: HEPARIN SOD 5,000 UNIT/0.5 ML VIAL SQ SCH ×2 (09:33→09:44)
[2022-09-22] MEDS: INSULIN ASPART PER UNIT CHARGE SC SCH ×2 (09:42→12:57)
[2022-09-22] MEDS: BUPRENORPHINE/NALOXONE 8/2 MG TAB SL SCH (09:47)
--- NOTE | 2022-09-22 16:40 | Discharge Summary ---
Date of Service September 22, 2022 Admission HPI Per Admitting Provider The patient is a 57-year-old male with a past medical history including distant tobacco use, opioid dependence in remission, COPD, osteoarthritis, situational stress. He presents to the emergency department symptoms as noted above. In the ED, he was found to have a pulse ox of 81% on room air which improved significantly on 3 L oxygen to the low 90s. He denies any associated productive cough, and has not had any symptoms like this in the past. He did get some improvement with DuoNeb and Solu-Medrol 125 mg IV in ED. Principal Diagnosis problem 1 Discharge Exam gen - NAD, thin, looks good today mouth - MMM heart - RRR, s1 s2, no obvious murmur lungs - improved airway. abd - soft NT ND BS+ ext - no edema, pulses 2+ b/l psych - a/o x 3 Discharge Data Allergies Allergy/AdvReac Type Severity Reaction Status Date / Time No Known Allergies Allergy Unknown Verified 09/18/22 22:33 Consultations 09/19/22 00:30 ED Decision to Admit Stat Ordered Studies 09/18/22 22:51 CT angio chest PE protocol Stat Hospital Course (1) Acute respiratory failure with hypoxia: 2nd to #2 resolved he is off NC O2 at rest (2) COPD exacerbation: improving very nicely he is off O2 at rest but may need ambulatory O2 at home stop IV solumedrol after tonight's dose switch to po prednisone 40mg daily starting in am send home with prednisone taper cont zithromax 5 days in total - day #3 today pulm toilet - flutter, IS, mucinex, etc Discharge plan: 1. continue advair/ may consider increasing advair. will defer to PCP 2. discharge on incruse 3. prednisone taper 4. albuterol 5. needs pulmonary referral for PFTs, etc; he is interested in pulmonary rehab 6. will continue azithromycin. 2 step shows no oxygen requirement. (3) Opioid dependence in remission: cont buprenorphine/naloxine 1 tab BID no issues (4) Prediabetes: a1c 6.2% discussed in detail today since we are weaning steroids stop the lantus at discharge -- diet control only handouts added to d/c instructions (5) DVT prophylaxis: heparin 5000 BID (6) Anemia: Hb 13 at presentation check Fe studies, b12, folate AM Total Time Total Time Spent Total Time Spent (In Minutes): 35 Discharge Plan Discharge Items Patient Disposition: Home - Self-Care Reason For Visit: ACUTE RESPIRATORY FAILURE WITH HYPOXIA, COPD EX Discharge Diagnosis: acute respiratory failure with hypoxia, copd ex Activity: Resume your previous activity Non-emergency contact: Primary Care Provider Call non-emergency contact if: you have any medication questions Follow-up/Referrals: Daniel Garcia MD [Primary Care Provider] - Diet: Carb Consistent or DM2 Addtl Attending Provider Instructions: You have been hospitalized for an acute medical problem. During your stay at [facility], we have made an effort to correct the problem that brought you to the hospital while keeping you as comfortable as possible. Medications were used to bring your condition under control and your discharge instructions will include directions for any medications you should take after leaving the hospital. Please make sure you see your Primary Care Provider as part of your follow up plan. Pending Studies at Discharge: No Stand-Alone Forms: [facility], Smoking Cessation Medications and DC Order Prescriptions: New azithromycin 250 mg Tablet 250 mg PO QAM Qty: 2 0RF Incruse Ellipta 62.5 mcg/actuation Blister With Device 1 inh inhalation QAM Qty: 30 0RF prednisone 10 mg tablet 10 mg PO DAILY Qty: 12 0RF Rx Instructions: Take 3 tabs by mouth for 2 days then 2 tabs for 2 days then 1 tab for 2 days. guaifenesin [Mucinex] 600 mg Tablet Extended Release 12hr 1,200 mg PO Q12 5 Days Qty: 20 0RF Continued albuterol sulfate 90 mcg/actuation HFA aerosol inhaler 2 inh INH Q6H PRN (Reason: shortness of breath or wheezing) Qty: 18 11RF fluticasone propion-salmeterol [Advair Diskus] 100-50 mcg/dose blister with device 1 inh INH BID Qty: 60 11RF buprenorphine-naloxone 8-2 mg tablet, sublingual 1 tab sublingual BID Qty: 60 5RF Rx Instructions: may pay puentes amoxicillin 500 mg tablet 500 mg PO BID PRN (Reason: NEEDED PER PT.) Rx Instructions: PER PT "HAS BEEN TAKING FOR ABOUT A WK. NORMALLY USE A RESCUE KIT IF NEEDED". ibuprofen 800 mg tablet 800 mg PO Q8H PRN (Reason: Pain) Discharge Orders: Discharge Order (Routine); Ordered 09/22/22 Ordered By: M[place]hi [place]/Other Patient Handouts: A1C, Prediabetes, 5 Steps for Eating Healthier Admission Data Admit Date/Time: 09/19/22 01:43 Attending Provider: Mekhi Melendez Admit Provider: Nikos Daniels Primary Care Provider: Daniel Garcia Other Providers: Nikos Daniels Other Interventions: Discharge Summary Assessment (RN) Last Done: 09/22/22 16:44 Coding Level of Care Code 44804 INP/OBS DISCH >30 MIN Diagnoses Acute respiratory failure with hypoxia J96.01 COPD exacerbation J44.1 Opioid dependence in remission F11.21 Prediabetes R73.03 DVT prophylaxis Z29.9 Anemia D64.9
== END 2022-09-22 17:17 | disposition home or self-care (01) | DRG 190 ==
LOC: ED 21:25 → 2S 09-19 01:43 → SUATTDRO 09-19 01:43 → 2S 09-19 02:04 → 3W 09-20 18:23